=== PATIENT | female | born 2000 | race African-American/Black ===

== ENCOUNTER 2018-09-04 13:41 | Emergency (ER) | payer MEDICAID ==
[~2018-09-04] VITALS: Ht 165.1 cm; Wt 62.0 kg
[2018-09-04] MEDS ORDERED: SODIUM CHLORIDE 0.9% 1,000 ML IV ONE (15:18)
[2018-09-04] MEDS ORDERED: ACETAMINOPHEN 325MG TABLET PO STA (15:18)
[2018-09-04] MEDS ORDERED: METOCLOPRAMIDE HCL 10MG/2ML VIAL IV ONE (15:30)
[2018-09-04] MEDS ORDERED: DIPHENHYDRAMINE 50MG/ML VIAL IV ONE (15:30)
[2018-09-04 15:53] LABS: BASOPHILS % 0.5 % (0.0-2.0); EOSINOPHILS % 0.2 % (0.0-5.0); HEMATOCRIT. 37.4 % (36.0-48.0); HEMOGLOBIN. 12.7 g/dL (12.0-16.0); LYMPHOCYTES % 15.7 % (20.0-50.0); MEAN CORPUSCULAR HEMOGLOBIN 29.3 pg (28.0-32.0); MEAN CORPUSCULAR VOLUME 85.9 fL (81.0-99.0); MEAN PLATELET VOLUME 8.6 fl (7.4-10.4); MONOCYTES % 5.6 % (2.0-8.0); PLATELET 277 x1000/uL (130-400); RED BLOOD CELL COUNT 4.35 mill/uL (4.2-5.4); RED CELL DISTRIBUTION WIDTH 14.2 % (11.6-14.6)
[2018-09-04 15:56] LABS: CLARITY URINE CLEAR (CLEAR); COLOR URINE YELLOW (YELLOW); KETONES URINE 4+ (NEGATIVE); LEUKOCYTE ESTERASE URINE NEGATIVE (NEGATIVE); NITRITE URINE NEGATIVE (NEGATIVE); OCCULT BLOOD URINE NEGATIVE (NEGATIVE); PROTEIN URINE NEGATIVE (NEGATIVE); SPECIFIC GRAVITY URINE 1.018 (1.005-1.030); UROBILINOGEN URINE 0.2 E.U./dL (0.2-1.0)
[2018-09-04 15:56] LABS: CHLORIDE 104 mEq/L (98-107)
[2018-09-04 15:59] LABS: PROTHROMBIN TIME 10.1 sec (9.1-11.1)
[2018-09-04 20:09] VITALS: BP 104/65
== END 2018-09-04 20:09 | disposition home or self-care (01) ==
LOC: ER 13:41
DX: O26.892 Other specified pregnancy related conditions, second trimester (principal); O29.42 Spinal and epidural anesthesia induced headache during pregnancy, second trimester; O21.9 Vomiting of pregnancy, unspecified; O02.9 Abnormal product of conception, unspecified; O08.5 Metabolic disorders following an ectopic and molar pregnancy; E86.0 Dehydration; Z3A.14 14 weeks gestation of pregnancy; Z88.1 Allergy status to other antibiotic agents
CPT/HCPCS: 36415; 76805; 80053; 81003; 81025; 84702; 85025; 85610; 96374; 96375; 99284; J1200; J2765; J7030

== ENCOUNTER 2018-12-17 00:17 | Observation (INO) | payer MEDICAID ==
[~2018-12-17] VITALS: Ht 165.1 cm; Wt 67.1 kg
[2018-12-17] MEDS ORDERED: FERR325T6 PO (01:14)
[2018-12-17] MEDS ORDERED: CALC-1042 PO (01:14)
[2018-12-17] MEDS ORDERED: PNV1TABL50 MT (01:14)
[2018-12-17 01:23] LABS: CLARITY URINE CLEAR (CLEAR); COLOR URINE YELLOW (YELLOW); KETONES URINE NEGATIVE (NEGATIVE); LEUKOCYTE ESTERASE URINE NEGATIVE (NEGATIVE); NITRITE URINE NEGATIVE (NEGATIVE); OCCULT BLOOD URINE NEGATIVE (NEGATIVE); PROTEIN URINE NEGATIVE (NEGATIVE); SPECIFIC GRAVITY URINE 1.008 (1.005-1.030); UROBILINOGEN URINE 0.2 E.U./dL (0.2-1.0)
[2018-12-17] MEDS ORDERED: ACETAMINOPHEN 500MG TABLET PO ONE (01:45)
[2018-12-17] MEDS: DEXT 5%/LACTATED RINGERS 1,000 ML IV ONE (01:58)
== END 2018-12-17 03:05 | disposition home or self-care (01) ==
LOC: 8 EST LDRP 00:17
PROVIDERS: ADMIT Obstetrics & Gynecology; ATTEND Obstetrics & Gynecology
DX: O26.893 Other specified pregnancy related conditions, third trimester (principal); R10.30 Lower abdominal pain, unspecified; O99.89 Other specified diseases and conditions complicating pregnancy, childbirth and the puerperium; M54.5 Low back pain; Z3A.28 28 weeks gestation of pregnancy
CPT/HCPCS: 81003; 99281; G0378; 96360

== ENCOUNTER 2019-03-01 22:08 | Observation (INO) | payer MEDICAID, OTHER ==
[~2019-03-01] VITALS: Ht 165.1 cm; Wt 74.4 kg
[~2019-03-01 22:08] MED LIST: CALC-1042 PO; FERR325T6 PO; PNV1TABL50 MT
[2019-03-02] MEDS ORDERED: ACETAMINOPHEN 500MG TABLET PO SCH (00:15)
== END 2019-03-02 01:25 | disposition home or self-care (01) ==
LOC: 8 EST LDRP 22:08 → UNDODISOB 23:25
PROVIDERS: ADMIT Obstetrics & Gynecology; ATTEND Obstetrics & Gynecology
DX: O62.9 Abnormality of forces of labor, unspecified (principal); Z3A.39 39 weeks gestation of pregnancy
CPT/HCPCS: 99281; G0378

== ENCOUNTER 2019-03-04 07:28 | Inpatient (IN) | payer MEDICAID ==
[~2019-03-04] VITALS: Ht 165.1 cm; Wt 74.4 kg
[2019-03-04] MEDS ORDERED: DEXT 5%/LR + PITOCIN 20UNITS/L 1,000 ML IV SCH ×2 (07:40→19:12)
[2019-03-04] MEDS ORDERED: LIDOCAINE HCL 1% 20ML VIAL (Pyxis) INJ INFIL SCH (07:45)
[2019-03-04] MEDS ORDERED: BUTORPHANOL TARTRATE 2 MG/ML VIAL IV PRN (07:45)
[2019-03-04] MEDS ORDERED: CLINDAMYCIN 900 MG in DEXTROSE 5% WATER 50 ML IV SCH (08:00)
[2019-03-04 08:47] LABS: CLARITY URINE CLEAR (CLEAR); COLOR URINE YELLOW (YELLOW); KETONES URINE NEGATIVE (NEGATIVE); LEUKOCYTE ESTERASE URINE TRACE (NEGATIVE); NITRITE URINE NEGATIVE (NEGATIVE); OCCULT BLOOD URINE NEGATIVE (NEGATIVE); PROTEIN URINE NEGATIVE (NEGATIVE); SPECIFIC GRAVITY URINE 1.013 (1.005-1.030); UROBILINOGEN URINE 0.2 E.U./dL (0.2-1.0)
[2019-03-04 08:51] LABS: BASOPHILS % 0.4 % (0.0-2.0); EOSINOPHILS % 0.3 % (0.0-5.0); HEMATOCRIT. 36.3 % (36.0-48.0); HEMOGLOBIN. 12.7 g/dL (12.0-16.0); LYMPHOCYTES % 17.1 % (20.0-50.0); MEAN CORPUSCULAR HEMOGLOBIN 30.5 pg (28.0-32.0); MEAN CORPUSCULAR VOLUME 86.9 fL (81.0-99.0); MEAN PLATELET VOLUME 9.5 fl (7.4-10.4); MONOCYTES % 7.8 % (2.0-8.0); NEUTROPHILS % 74.4 % (40.0-76.0); PLATELET 242 x1000/uL (130-400); RED BLOOD CELL COUNT 4.18 mill/uL (4.2-5.4); RED CELL DISTRIBUTION WIDTH 13.9 % (11.6-14.6)
[2019-03-04 08:57] LABS: INR 0.9; PARTIAL THROMBOPLASTIN TIME 31.4 sec (23.4-31.0); PROTHROMBIN TIME 9.6 sec (9.6-11.0)
[2019-03-04 09:03] LABS: CANNABINOID URINE SCREEN NEGATIVE (NEGATIVE); PHENCYCLIDINE URINE SCREEN NEGATIVE (NEGATIVE)
[2019-03-04 09:06] LABS: *AMPHETAMINES SCREEN URINE NEGATIVE (NEGATIVE); *BARBITURATES SCREEN URINE NEGATIVE (NEGATIVE); *BENZODIAZEPINES SCREEN URINE NEGATIVE (NEGATIVE); *COCAINE SCREEN URINE NEGATIVE (NEGATIVE)
[2019-03-04 09:07] LABS: METHADONE URINE SCREEN NEGATIVE (NEGATIVE); OPIATES URINE SCREEN NEGATIVE (NEGATIVE)
[2019-03-04] MEDS: LACTATED RINGERS 1,000 ML IV SCH ×2 (09:12→09:43)
[2019-03-04] MEDS ORDERED: GADOBENATE DIMEGLUMINE 529 MG/ML 10ML IV ONE (09:47)
[2019-03-04] MEDS ORDERED: MINERAL OIL 30ML BOTTLE PO SCH (10:00)
[2019-03-04] MEDS ORDERED: ROPIVACAINE HCL/PF EPIDURAL 200 ML EPI SCH (10:00)
[2019-03-04] MEDS ORDERED: EPHEDRINE SULFATE 50MG/ML VIAL ONE (15:51)
[2019-03-04] MEDS ORDERED: LIDOCAINE HCL 2%/EPINEPHRINE 1:100,000 20 ML VIAL INFIL ONE (15:51)
[2019-03-04] MEDS ORDERED: RHO(D) IMMUNE GLOBULIN 300 MCG/SYR IM PRN (19:15)
[2019-03-04] MEDS ORDERED: LANOLIN OINT 7GM TUBE TOP PRN (19:15)
[2019-03-04] MEDS ORDERED: IBUPROFEN 400MG TABLET PO PRN (19:15)
[2019-03-04] MEDS ORDERED: DIPHENHYDRAMINE 25MG CAPSULE PO PRN (19:15)
[2019-03-04] MEDS ORDERED: METHYLERGONOVINE MALEATE 0.2 MG/ML IM PRN (19:15)
[2019-03-04 20:40] VITALS: BP 102/56
[2019-03-04] MEDS ORDERED: DOCUSATE SODIUM 100MG CAPSULE PO SCH (21:00)
[2019-03-04 21:10] VITALS: BP 109/56
[2019-03-04] MEDS: IBUPROFEN 800MG TABLET PO PRN (21:15)
[2019-03-04 21:45] VITALS: BP 100/56
[2019-03-05] MEDS: ACETAMINOPHEN WITH CODEINE 300/30MG TABLET PO PRN ×4 (01:23→22:32)
[2019-03-05 04:00] VITALS: BP 96/45
[2019-03-05] MEDS: IBUPROFEN 800MG TABLET PO PRN (06:03)
[2019-03-05 08:00] VITALS: BP 96/51
[2019-03-05 08:10] LABS: BASOPHILS % 0.1 % (0.0-2.0); EOSINOPHILS % 0.2 % (0.0-5.0); HEMATOCRIT. 29.2 % (36.0-48.0); HEMOGLOBIN. 9.8 g/dL (12.0-16.0); LYMPHOCYTES % 13.8 % (20.0-50.0); MEAN CORPUSCULAR HEMOGLOBIN 29.6 pg (28.0-32.0); MEAN CORPUSCULAR VOLUME 88.5 fL (81.0-99.0); MEAN PLATELET VOLUME 9.4 fl (7.4-10.4); MONOCYTES % 9.7 % (2.0-8.0); NEUTROPHILS % 76.2 % (40.0-76.0); PLATELET 202 x1000/uL (130-400); RED CELL DISTRIBUTION WIDTH 14.2 % (11.6-14.6)
[2019-03-05] MEDS: PRENATAL VIT/FE FUMARATE/FA TABLET PO SCH (09:29)
[2019-03-05 12:11] LABS: HEPATITIS B SURFACE ANTIGEN NEGATIVE
[2019-03-05 16:29] VITALS: BP 106/51
[2019-03-05 20:00] VITALS: BP 95/57
[2019-03-06 04:30] VITALS: BP 100/52
[2019-03-06 08:00] VITALS: BP 97/51
[2019-03-06] MEDS: PRENATAL VIT/FE FUMARATE/FA TABLET PO SCH (09:15)
[2019-03-06] MEDS: IBUPROFEN 800MG TABLET PO PRN (09:16)
== END 2019-03-06 11:00 | disposition home or self-care (01) | DRG 560 ==
LOC: 8 EST LDRP 07:28 → OBSVTOIN 07:28 → 8EST 21:06
PROVIDERS: ADMIT Obstetrics & Gynecology; ATTEND Obstetrics & Gynecology
PROC: 10E0XZZ Delivery of Products of Conception, External Approach (ICD-10-PCS; principal; 2019-03-05)
PROC: 3E0R3BZ Introduction of Anesthetic Agent into Spinal Canal, Percutaneous Approach (ICD-10-PCS; 2019-03-05)
PROC: 00HU33Z Insertion of Infusion Device into Spinal Canal, Percutaneous Approach (ICD-10-PCS; 2019-03-05)
PROC: 0HQ9XZZ Repair Perineum Skin, External Approach (ICD-10-PCS; 2019-03-05)
DX: O71.4 Obstetric high vaginal laceration alone (principal); D64.9 Anemia, unspecified; Z37.0 Single live birth; O48.0 Post-term pregnancy; Z3A.41 41 weeks gestation of pregnancy; O90.81 Anemia of the puerperium
CPT/HCPCS: 36415; 80305; 81003; 86592; 86703; 86762; 86850; 86900; 87340; A9577; G0378; J0595; J2590; J2795; J3490; J7060